=== PATIENT | male | born 1935 | race Asian ===

== ENCOUNTER 2018-09-05 23:32 | Inpatient (IN) | payer OTHER ==
[~2018-09-05] VITALS: Ht 170.2 cm; Wt 63.5 kg
[2018-09-06 00:17] LABS: Basophils # (auto) 0.1 uL; Basophils % (auto) 0.5 % (0.0-2.0); Eosinophils # (auto) 0.1 uL; Eosinophils % (auto) 1.1 % (0.0-7.0); Hematocrit 35.7 % (41.0-53.0); Hemoglobin 11.3 g/dL (13.5-17.5); Lymphocytes # (auto) 1.6 uL; Lymphocytes % (auto) 12.4 % (10.0-50.0); Mean Corpuscular Hemoglobin 21.5 pg (28.0-32.0); Mean Corpuscular Hgb Conc. 31.7 g/dL (32.0-36.0); Mean Corpuscular Volume 67.9 fL (80.0-100.0); Monocytes # (auto) 1.8 uL; Monocytes % (auto) 13.8 % (0.0-12.0); Neutrophils # (auto) 9.2 uL; Neutrophils % (auto) 72.2 % (37.0-80.0); Nucleated Red Blood Cells % 0.1 %; Platelet Count (auto) 694 10^3/uL (140-450); Red Blood Cells 5.26 10^6/uL (4.5-5.90); Red Cell Distribution Width 14.9 % (11.8-14.3); White Blood Cell 12.7 10^3/uL (4.4-10.8)
[2018-09-06 02:07] LABS: Albumin 2.6 g/dL (3.4-5.0); Anion Gap 10 (5-15); Blood Urea Nitrogen 31 mg/dL (7-18); Calcium 8.6 mg/dL (8.5-10.1); Carbon Dioxide 22 mmol/L (21-32); Chloride 111 mmol/L (98-107); Glucose 122 mg/dL (74-106); Potassium 4.7 mmol/L (3.5-5.1); Sodium 143 mmol/L (136-145)
[2018-09-06 02:11] LABS: Alanine Aminotransferase 18 U/L (16-61); Alkaline Phosphatase 68 U/L (45-117); Aspartate Aminotransferase 13 U/L (15-37); BUN/Creatinine Ratio 28.4; Bilirubin, Total 0.4 mg/dL (0.2-1.0); GFR African American 84 mL/min; GFR Non-African American 69 mL/min; Total Protein 7.6 g/dL (6.4-8.2)
[2018-09-06] MEDS ORDERED: METOPROLOL TARTRATE 1MG/1ML-5ML VIAL IV ONE (02:30)
[2018-09-06] MEDS ORDERED: SODIUM CHLORIDE 0.9% 500 ML IV ONE ×2 (02:45→22:58)
[2018-09-06 03:16] LABS: INR 1.42 (0.9-1.15); Partial Thromboplastin Time 45.3 sec (23.64-32.05)
[2018-09-06] MEDS ORDERED: AMIODARONE HCL (50 MG/ ML) 3 ML VIAL IV ONE ×2 (05:30→05:31)
[2018-09-06] MEDS ORDERED: AMIODARONE HCL 900 MG in DEXTROSE 500 ML IV SCH ×2 (05:30→11:30)
[2018-09-06] MEDS ORDERED: ACETAMINOPHEN 500 MG TAB PO PRN (06:00)
[2018-09-06] MEDS ORDERED: ONDANSETRON HCL 4 MG/2 ML VIAL IV PRN (06:00)
[2018-09-06] MEDS ORDERED: DOCUSATE SOD 100 MG CAP PO PRN (06:00)
[2018-09-06] MEDS ORDERED: HYDROcodone-ACET 5/325MG TAB PO PRN (06:00)
[2018-09-06 07:11] LABS: Urine Bacteria NONE SEEN /hpf (None Seen); Urine Blood 2+ /uL (Negative); Urine Hyaline Cast FEW /lpf (0 - 2); Urine Mucus FEW (None Seen); Urine WBC 3 /hpf (0 - 3)
[2018-09-06] MEDS ORDERED: LORazepam 0.5 MG TAB PO PRN (08:00)
[2018-09-06] MEDS: LISINOPRIL 5 MG TAB PO SCH (09:25)
[2018-09-06] MEDS ORDERED: ENOXAPARIN SOD 40 MG/0.4 ML SYRINGE SC SCH (10:00)
[2018-09-06] MEDS: PANTOPRAZOLE 40 MG TAB PO SCH (10:38)
[2018-09-06] MEDS: ASPirin-EC 81 mg tab PO SCH (10:38)
[2018-09-06] MEDS ORDERED: DABI150C PO (11:20)
[2018-09-06] MEDS ORDERED: BISO5TAB44 PO (11:20)
[2018-09-06] MEDS ORDERED: LORazepam 2MG/ML-1ML VIAL IV ONE (13:30)
[2018-09-06] MEDS ORDERED: LORazepam 2MG/ML-1ML VIAL ONE (13:32)
[2018-09-06] MEDS ORDERED: HALOPERIDOL LACTATE 5 MG/ML INJ VIAL ONE (14:38)
[2018-09-06] MEDS ORDERED: diphenhdrAMINE HCL 50 MG/1 ML VL ONE (14:38)
[2018-09-06] MEDS ORDERED: diphenhdrAMINE HCL 50 MG/1 ML VL IV ONE (15:00)
[2018-09-06] MEDS ORDERED: HALOPERIDOL LACTATE 5 MG/ML INJ VIAL IM ONE (15:00)
[2018-09-06] MEDS: metroNIDAZOLE 500MG/100ML 100 ML IV SCH ×2 (15:15→21:45)
[2018-09-06] MEDS ORDERED: cefTRIAXone 1GM/50ML D5W 50 ML IV ONE (16:00)
[2018-09-06] MEDS ORDERED: DIGOXIN (250MCG/ML) 2 ML AMPULE IV ONE (16:15)
[2018-09-06 16:37] LABS: Lactic Acid w/Reflex 4.3 mmol/L (0.4-2.0)
[2018-09-06] MEDS ORDERED: IOHEXOL 350 MG/ML 100ML IJ ONE (18:01)
[2018-09-06] MEDS: AMIODARONE HCL 900 MG in DEXTROSE 500 ML IV SCH ×2 (19:00→23:50)
[2018-09-06] MEDS ORDERED: ATORVASTATIN 20 MG TAB PO SCH (22:00)
[2018-09-07 04:15] VITALS: BP 144/74
--- NOTE | 2018-09-07 04:15 | NUR ---
Admit to [facility] Clark admitted to [facility] via bed on monitoring analyst. Patient connected to bedside monitor and weighed by bed scale. Patient oriented to Liset cho RN, unit, room, bed, and unit policies regarding patient care and visiting hours. All questions and concerns addressed, patient verbalized understanding. NOTE: Patient is alert and oriented x2. at the bedside answering questions. On room air with no distress or sob Bililary drain noted on Right upper abdominal quadrant. Amio drip at 1mg/min for A Fib w RVR. Instructed patient and on POC. Questions answered
--- NOTE | 2018-09-07 04:45 | NUR ---
MORNING HYGIENE CARE FULL BED BATH PERFORMED USING CHG WIPES. PARTIAL LINEN CHANGED. GOWN CHANGED. PATIENT REPOSITIONED FOR COMFORT. TOLERATED IT WELL.
[2018-09-07] MEDS: metroNIDAZOLE 500MG/100ML 100 ML IV SCH ×2 (05:09→14:03)
[2018-09-07] MEDS ORDERED: ASPI81TA27 PO (05:29)
[2018-09-07] MEDS ORDERED: CEFP200T15 PO (05:29)
[2018-09-07] MEDS ORDERED: ATO40T PO (05:29)
[2018-09-07] MEDS ORDERED: LISI-275 PO (05:29)
[2018-09-07] MEDS ORDERED: OMEP20TA PO (05:29)
[2018-09-07] MEDS ORDERED: METR500T PO (05:29)
--- NOTE | 2018-09-07 06:45 | NUR ---
END OF SHIFT PATIENT IS QUIETLY LAYING IN BED SLEEPING. NO SOB, DISTRESS OR PAIN NOTED. REMAINS ON AMIO DRIP AT 1MG/MIN PER MD REQUEST. WILL GIVE REPORT AND ENDORSE CARE TO THE DAY SHIFT RN.
--- NOTE | 2018-09-07 07:30 | NUR ---
RECEIVED PATIENT LYING IN BED, A/O TIMES 2, ONLY TO SELF, AMIODARONE INFUSING INTO THE RFA AT 33.33ML /HR BY THE IV PUMP, RT HAND HAS SALINE LOCK 22G FLUSHED AND PATENT, MAJOR TO GRAVITY, O2 BY R/A, PATIENT HAS A BILIARY TUBE TO HIS RT SIDE WITH BROWNISH DRAINAGE, NO COMPLAINTS OF PAIN
[2018-09-07 08:00] VITALS: BP 121/64
--- NOTE | 2018-09-07 08:00 | NUR ---
DR BARROW IN TO SEE THE PATIENT AND STATED HE WAS GOING TO TRANSFER TO [place] TOMORROW THE PATIENT WAS NOT STABLE ENOUGH TODAY
--- NOTE | 2018-09-07 08:30 | NUR ---
STATES HE DOESN'T WANT ANYTHING TO EAT AT THIS TIME MAY BE LATER
[2018-09-07] MEDS ORDERED: cefTRIAXone 1GM/50ML D5W 50 ML IV SCH (09:00)
--- NOTE | 2018-09-07 09:15 | NUR ---
IN TO SEE THE PATIENT AND FEEDING HIM, BREAKFAST
[2018-09-07] MEDS: LISINOPRIL 5 MG TAB PO SCH (10:00)
--- NOTE | 2018-09-07 10:10 | NUR ---
EXPLAIN MEDICATIONS TO THE PATIENT AND HIS REGARDING THE DOSAGE,USAGE, AND THE SIDE EFFECTS, VERBALIZED THAT THEY UNDERSTOOD AND MEDS GIVEN ORDERED, CIPRIANO HAS NO PROBLEM WITH SWALLOWING HIS PILLS
[2018-09-07] MEDS: ASPirin-EC 81 mg tab PO SCH (10:11)
[2018-09-07] MEDS: PANTOPRAZOLE 40 MG TAB PO SCH (10:11)
--- NOTE | 2018-09-07 11:10 | NUR ---
DR BAKER CALLED AND STATED HE WAS GOING TO TALK WITH DR BARROW AND TELL HIM TO TRANSFER THE PATIENT TODAY TO [facility]
--- NOTE | 2018-09-07 11:27 | NUR ---
PATIENT GOING TO THE X-RAY FOR CT OF THE HEAD BY THE BED,
--- NOTE | 2018-09-07 11:41 | NUR ---
DR BAKER IN TO SEE THE PATIENT AND SPOKE WITH HIS REGARDING HIS CONDITION
--- NOTE | 2018-09-07 11:47 | NUR ---
PATIENT BACK FROM HAVING CT AND TOLERATED
[2018-09-07 12:00] VITALS: BP 126/75
--- NOTE | 2018-09-07 12:45 | NUR ---
I received a page from [facility] regarding this patient needing to be transferred to [facility]. I called [facility] [phone] and spoke with Blade Grinder Chantel (phone number [phone]) to make her aware-I provided her with contact information for the nurse's station. I spoke with nurse Cowan and asked her to fax the face sheet, transfer order and transfer summary to [facility].
--- NOTE | 2018-09-07 13:00 | NUR ---
INFORMATION FAXED TO [facility] REGARDING THE PATIENT
--- NOTE | 2018-09-07 13:22 | NUR ---
PATIENT LYING IN BED WITH EYES CLOSED DOESN'T WANT TO EAT AT THIS TIME , AT THE BEDSIDE
--- NOTE | 2018-09-07 13:27 | NUR ---
I called [facility] [phone] and spoke with case coordinator Chantel-she said they did receive the transfer order and transfer summary-I let her know that to get a hold of Dr Treasure Todd they need to go through the hospital wire straightening machine operator. She said they are working on the transfer for this patient and will call the nurse's station when they have a bed-they also arrange transportation.
--- NOTE | 2018-09-07 14:05 | NUR ---
IV INFILTRATED IN THE RFA, REPLACED SALEIN LOCK TOT HE RT WRIST 22G, 2/2 ATTEMPTS USING STERILE TECHNIQUE
[2018-09-07] MEDS: AMIODARONE HCL 900 MG in DEXTROSE 500 ML IV SCH (14:56)
--- NOTE | 2018-09-07 15:15 | NUR ---
PATIENT SITTING UP IN BED WITH EYES CLOSED APPEARS TO BE SLEEPING, AT THE BEDSIDE
[2018-09-07 16:00] VITALS: BP 120/75
--- NOTE | 2018-09-07 16:07 | NUR ---
I called [facility] [phone] and spoke with an business performance analyst-she said they are still looking for a bed for this patient-they will call our nurse's station when they have a bed-they will also set up their own transportation-I relayed this information to [facility].
--- NOTE | 2018-09-07 16:12 | NUR ---
SPOKE WITH GHULAM INGOT HEADER FROM [facility] AND STATED THE PATIENT I WILL BE GOING TO [facility] IN [place]
--- NOTE | 2018-09-07 17:24 | NUR ---
PATIENT LYING IN THE BED WITH EYES CLOSED AT THE BEDSIDE, MADE HER AWARE THAT THE PATIENT IS GOING TO [facility]
--- NOTE | 2018-09-07 18:18 | NUR ---
CALLED FROM [facility] AND STATED PATIENTS GOING TO ROOM [address] [facility], WILL MAKE FAMILY AWARE, AMIODARONE INFUSING INTO THE RT HAND AT 33.33ML/HR BY THE IV PUMP, BILIARY TUBE INTACT AND PATENT, MAJOR TO GRAVITY, O2 BY R/A, PATIENT IS LYING IN BED WITH EYES CLOSED, SALINE LOCK TO THE RT WRIST 22G, , NO COMPLAINTS OF PAIN OR SOB, WILL CONTNINUE TO MONITOR AND WOOD TILE INSTALLER REPORT TO THE NEXT SHIFT
--- NOTE | 2018-09-07 19:20 | NUR ---
OPENING SHIFT RECEIVED REPORT FROM DAY SHIFT RN. ASSUMED CARE OF PATIENT. PATIENT IN BED SLEEPING WITH NO SIGNS OR SYMPTOMS OF SOB, PAIN OR DISTRESS. CURRENTLY ON ROOM AIR, 02 SAT - 99%. REPOSITIONED FOR COMFORT. RIGHT BILIARY DRAIN - CLEAN/INTACT/DRAINING. RIGHT HAND AND RIGHT WRIST IV - CLEAN/DRY/INTACT. MAJOR HUNG TO GRAVITY ON BED RAIL. BED IN LOWEST POSITION, SIDE RAILS UP X2, CALL LIGHT WITHIN REACH. WILL CONTINUE TO MONITOR.
[2018-09-07 20:00] VITALS: BP 143/69
--- NOTE | 2018-09-07 20:35 | NUR ---
CALLED [facility] AND GAVE REPORT TO RECEIVING NURSE LUKE DE LEON.
--- NOTE | 2018-09-07 21:25 | NUR ---
PATIENT PICKED UP [facility]IA [employer] WITH 2 MANAGER SIGN AND 1 RN ON [facility] TRANSPORT. PATIENT CURRENTLY ON ROOM AIR WITH NO SIGNS OR SYMPTOMS OF DISTRESS. FAMILY AT BEDSIDE. PATIENT TRANSFERRED TO [facility]. Addendum: 09/07/18 at 2143 by MITCH TIRADO RN RN RIGHT BILIARY DRAIN - INTACT. MORIAH HUNG TO GRAVITY ON [employer]. RIGHT WRIST AND RIGHT HAND IV - CLEAN/DRY/INTACT.
== END 2018-09-07 21:29 | disposition short-term general hospital (02) | DRG 871 ==
LOC: EDBD 23:32 → ER 23:39 → TELE 09-06 03:33 → DOU IN ICU 09-07 04:15
PROVIDERS: ADMIT Nurse Practitioner Family; ATTEND Nurse Practitioner Family
DX: A41.9 Sepsis, unspecified organism (principal); G93.41 Metabolic encephalopathy; I31.3 Pericardial effusion (noninflammatory); I48.92 Unspecified atrial flutter; N39.0 Urinary tract infection, site not specified; J90 Pleural effusion, not elsewhere classified; I48.0 Paroxysmal atrial fibrillation; D64.9 Anemia, unspecified; F03.90 Unspecified dementia, unspecified severity, without behavioral disturbance, psychotic disturbance, mood disturbance, and anxiety; I10 Essential (primary) hypertension; E78.5 Hyperlipidemia, unspecified; E78.00 Pure hypercholesterolemia, unspecified; Z79.899 Other long term (current) drug therapy; K57.90 Diverticulosis of intestine, part unspecified, without perforation or abscess without bleeding
CPT/HCPCS: 36415; 51702; 70450; 71045; 71275; 74176; 80053; 81001; 83605; 83735; 83880; 84443; 84484; 85025; 85379; 85610; 85730; 87040; 87081; 87086; 93005; 93306; 93970; 96374; 99291; G0378; J0696; J3490

== ENCOUNTER 2018-10-23 03:12 | Emergency (ER) | payer OTHER ==
[~2018-10-23] VITALS: Ht 167.6 cm; Wt 72.6 kg
[~2018-10-23 03:12] MED LIST: ASPI-404 PO; ATO40T PO; BISO5TAB44 PO; CEFP200T15 PO; DABI150C5 PO; LISI-275 PO; METR500T PO; OMEP20TA PO
[2018-10-23] MEDS ORDERED: SODIUM CHLORIDE 0.9% 500 ML IVB ONE (03:51)
[2018-10-23] MEDS ORDERED: ETOMIDATE (2MG/ML) 20ML VIAL IV ONE ×2 (04:36→04:45)
[2018-10-23] MEDS ORDERED: MIDAZOLAM HCL 5 MG/ML-1ML VIAL ONE (04:36)
[2018-10-23] MEDS ORDERED: SUCCINYLCHOLINE CHLORIDE 20 MG/ML 10ML VIAL IV ONE (04:37)
[2018-10-23] MEDS ORDERED: LEVETIRACETAM INJ 1,000 MG in D5W 5% 100 ML IV ONE (04:45)
[2018-10-23] MEDS ORDERED: MIDAZOLAM HCL 5 MG/ML-1ML VIAL IV ONE (04:45)
[2018-10-23] MEDS ORDERED: PROPOFOL 100 ML IV ONE (04:49)
[2018-10-23 04:55] VITALS: BP 130/74
[2018-10-23 04:59] LABS: INR 1.11 (0.9-1.15)
[2018-10-23 05:00] LABS: Albumin 2.8 g/dL (3.4-5.0); Anion Gap 11 (5-15); BUN/Creatinine Ratio 10.1; Blood Urea Nitrogen 10 mg/dL (7-18); Calcium 8.1 mg/dL (8.5-10.1); Carbon Dioxide 21 mmol/L (21-32); Chloride 109 mmol/L (98-107); GFR African American 94 mL/min; GFR Non-African American 77 mL/min; Glucose 146 mg/dL (74-106); Magnesium 2.2 mg/dL (1.6-2.6); Potassium 3.6 mmol/L (3.5-5.1); Sodium 141 mmol/L (136-145)
[2018-10-23] MEDS ORDERED: LEVETIRACETAM 500 MG/5ML INJ IV ONE (05:02)
[2018-10-23 05:03] LABS: Alanine Aminotransferase 46 U/L (16-61); Alkaline Phosphatase 59 U/L (45-117); Aspartate Aminotransferase 39 U/L (15-37); Bilirubin, Total 0.3 mg/dL (0.2-1.0); Total Protein 6.3 g/dL (6.4-8.2)
[2018-10-23 05:06] LABS: CRP High Sensitivity < 0.02 mg/dL (< 0.3)
[2018-10-23] MEDS ORDERED: MANNITOL 20 % (20GM/100ML) 500 ML IV ONE (05:14)
[2018-10-23] MEDS ORDERED: MANNITOL 20% SOLN 100 gm/500ml 250 ML IV ONE (05:15)
[2018-10-23 05:21] LABS: Basophils # (auto) 0 uL; Basophils % (auto) 0.3 % (0.0-2.0); Eosinophils # (auto) 0.1 uL; Monocytes # (auto) 1.2 uL; Monocytes % (auto) 8.8 % (0.0-12.0); Nucleated Red Blood Cells % 0.1 %
[2018-10-23 05:23] LABS: Hematocrit 32.9 % (41.0-53.0); Hemoglobin 10.4 g/dL (13.5-17.5); Lymphocytes # (auto) 2.4 uL; Lymphocytes % (auto) 17.3 % (10.0-50.0); Mean Corpuscular Hemoglobin 21.5 pg (28.0-32.0); Mean Corpuscular Hgb Conc. 31.5 g/dL (32.0-36.0); Mean Corpuscular Volume 68.2 fL (80.0-100.0); Neutrophils % (auto) 72.6 % (37.0-80.0); Platelet Count (auto) 234 10^3/uL (140-450); Red Blood Cells 4.82 10^6/uL (4.5-5.90); Red Cell Distribution Width 18.2 % (11.8-14.3); White Blood Cell 13.8 10^3/uL (4.4-10.8)
[2018-10-23 05:30] VITALS: BP 127/65
[2018-10-23] MEDS ORDERED: PROPOFOL 100 ML IV SCH (05:30)
[2018-10-23 05:42] LABS: Lactic Acid w/Reflex 5.8 mmol/L (0.4-2.0)
[2018-10-23 05:42] LABS: Urine Bacteria FEW /hpf (None Seen); Urine Blood Negative /uL (Negative); Urine Specific Gravity 1.007 (1.001-1.035); Urine WBC 1 /hpf (0 - 3)
[2018-10-23 06:02] VITALS: BP 121/57
== END 2018-10-23 06:43 | disposition short-term general hospital (02) ==
LOC: EDUNIT# 03:12 → EDBD 03:12 → ER 03:17 → EDBD 03:17 → ER 06:43
DX: S06.5X9A Traumatic subdural hemorrhage with loss of consciousness of unspecified duration, initial encounter (principal); F03.90 Unspecified dementia, unspecified severity, without behavioral disturbance, psychotic disturbance, mood disturbance, and anxiety; S01.01XA Laceration without foreign body of scalp, initial encounter; R41.82 Altered mental status, unspecified; E78.5 Hyperlipidemia, unspecified; I48.91 Unspecified atrial fibrillation; I10 Essential (primary) hypertension; W19.XXXA Unspecified fall, initial encounter; Y93.89 Activity, other specified; Y92.89 Other specified places as the place of occurrence of the external cause; Y99.8 Other external cause status
CPT/HCPCS: 31500; 36415; 36600; 70450; 71045; 80053; 81001; 82805; 83605; 83735; 84484; 85025; 85610; 85730; 86141; 87070; 87077; 87186; 87205; 93005; 94761; 96365; 96375; 99291; J1953; J2250; J2704; J7030; J7040; J7060; 94002; J0330